=== PATIENT | female | born 1965 | race Caucasian/White ===

== ENCOUNTER 2016-11-27 14:58 | Emergency (ER) | payer OTHER ==
[~2016-11-27] VITALS: Ht 162.6 cm; Wt 89.7 kg
[2016-11-27 16:46] LABS: ADD MIUA? YES; BILIRUBIN NEGATIVE; BLOOD NEGATIVE; COLOR YELLOW ((YELLOW)); GLUCOSE (STRIP) NEGATIVE; KETONES NEGATIVE; LEUKOCYTES TRACE; NITRITE NEGATIVE; PROTEIN (STRIP) NEGATIVE; SPECIFIC GRAVITY 1.021 (1.000-1.030)
[2016-11-27 17:13] LABS: BACTERIA RARE /HPF; EPITHELIAL CELLS 3+ /HPF; MUCUS TRACE /LPF; RED BLOOD CELLS 0-5 /HPF (0-5); WHITE BLOOD CELLS 0-5 /HPF (0-5)
[2016-11-27] MEDS ORDERED: KEFLEX500 MG PO (17:32)
[2016-11-27] MEDS ORDERED: BACTRIM,SEPT1 TABLET PO (17:32)
[2016-11-27 18:15] VITALS: BP 183/100
== END 2016-11-27 18:15 | disposition home or self-care (01) ==
LOC: EME 14:58
PROVIDERS: Physician Assistant
DX: L02.416 Cutaneous abscess of left lower limb (principal); L98.9 Disorder of the skin and subcutaneous tissue, unspecified; D64.9 Anemia, unspecified; I10 Essential (primary) hypertension; Z87.440 Personal history of urinary (tract) infections
CPT/HCPCS: 81003; 99281; 99283

== ENCOUNTER 2017-02-26 17:31 | Emergency (ER) | payer OTHER ==
[~2017-02-26] VITALS: Ht 160 cm; Wt 90.9 kg
[~2017-02-26 17:31] MED LIST: BACTRIM,SEPT1 TABLET PO; KEFLEX500 MG PO
[2017-02-26 18:20] LABS: HEMATOCRIT 43.9 % (36.0-46.0); MCH 30.1 PG (29.0-34.0); MCHC 33.7 G/DL (30.0-36.0); MCV 89.4 FL (83-99); MEAN PLAT.VOLUME 10.6 uM^3 (9.5-12.4); PLATELET COUNT 281 K/uL (156-360); RBC DIS.WIDTH-CV 12.9 % (11.8-14.6); RBC DIS.WIDTH-SD 41.8 % (39-53); RED BLOOD COUNT 4.91 M/uL (3.80-5.20); WHITE BLOOD COUNT 11.6 K/uL (4.1-10.2)
[2017-02-26 18:26] LABS: CHLORIDE 105 mEq/L (99-109); SODIUM 136 mEq/L (136-147)
[2017-02-26 18:28] LABS: GLUCOSE 135 mg/dL (70-99)
[2017-02-26 18:29] LABS: ANION GAP 9 MEQ/L (2-14)
[2017-02-26 18:31] LABS: ALKALINE PHOSPHATASE 82 IU/L (3-129)
[2017-02-26 18:32] LABS: GFR ESTIMATE (CALCULATED) > 59 mL/min/
[2017-02-26 18:33] LABS: UREA NITROGEN (BUN) 14 mg/dL (9-23)
[2017-02-26 18:35] LABS: LIPASE 13 U/L (1.0-51.0)
[2017-02-26 18:40] LABS: QUANTITATIVE HCG < 4.0 MIU/ML
[2017-02-26 20:29] LABS: ADD MEDTOX COMMENT Y; ADD MIUA? NO; AMPHETAMINE NEGATIVE (500 ng/mL); BARBITURATES NEGATIVE (200 ng/mL); BENZODIAZEPINES PRESUMPTIVE POSITIVE (150 ng/mL); BILIRUBIN NEGATIVE; BLOOD NEGATIVE; COCAINE NEGATIVE (150 ng/mL); COLOR YELLOW ((YELLOW)); GLUCOSE (STRIP) NEGATIVE; INTERNAL CONTROLS VALID? YES; KETONES NEGATIVE; LEUKOCYTES NEGATIVE; METHADONE NEGATIVE (200 ng/mL); METHAMPHETAMINE NEGATIVE (500 ng/mL); NITRITE NEGATIVE; OPIATES (MORPHINE) NEGATIVE (100 ng/mL); OXYCODONE NEGATIVE (100 ng/mL); PHENCYCLIDINE NEGATIVE (25 ng/mL); PROPOXYPHENE NEGATIVE (300 ng/mL); PROTEIN (STRIP) 30; THC CANNABINOIDS NEGATIVE (50 ng/mL); TRICYCLIC ANTIDEPRESSANTS NEGATIVE (300 ng/mL); UCUL ADDED? NO; UROBILINOGEN 0.2 MG/DL (0.2-1.0)
[2017-02-26 20:58] LABS: BENZODIAZEPINES, URINE SCREEN POSITIVE (200 ng/mL)
[2017-02-26] MEDS ORDERED: ZOFRAN ODT4 MG PO (21:14)
[2017-02-26] MEDS ORDERED: REGLAN5 MG PO (22:02)
[2017-02-26] MEDS ORDERED: BENTYL20 MG PO (22:02)
[2017-02-26 22:34] VITALS: BP 137/84
== END 2017-02-26 22:36 | disposition home or self-care (01) ==
LOC: EME 17:31
PROVIDERS: Nurse Practitioner Family
DX: R10.13 Epigastric pain (principal); R11.2 Nausea with vomiting, unspecified; I10 Essential (primary) hypertension; F41.9 Anxiety disorder, unspecified
CPT/HCPCS: 74177; 80053; 81003; 83690; 84702; 84999; 85027; 99281; 99285; J1885; J2405; J7030

== ENCOUNTER → 2017-05-22 | Outpatient (CLI) | payer OTHER ==
[~2017-05-22] MED LIST changes: +BENTYL20 MG PO; +FEOSOL325 MG PO; +LOPRESSOR50 MG PO; +PRILOSEC OTC20 MG PO; +REGLAN5 MG PO; +ULTRAM50 MG PO; +XANAX0.5 MG PO; +ZOFRAN ODT4 MG PO
== END | disposition home or self-care (01) ==
LOC: CDC 10:49
DX: Z01.810 Encounter for preprocedural cardiovascular examination (principal); C44.799 Other specified malignant neoplasm of skin of left lower limb, including hip; R00.1 Bradycardia, unspecified; I51.7 Cardiomegaly; R94.31 Abnormal electrocardiogram [ECG] [EKG]
CPT/HCPCS: 93000

== ENCOUNTER 2017-05-28 10:15 | Day surgery (SDC) | payer OTHER ==
[~2017-05-28] VITALS: Ht 162.6 cm; Wt 81.8 kg
[2017-05-28 11:04] VITALS: BP 175/74
[2017-05-28] MEDS ORDERED: NORCO 5/3251 TABLET PO (13:01)
[2017-05-28 13:42] VITALS: BP 142/93
[2017-05-28 14:42] VITALS: BP 168/86
== END 2017-05-28 14:55 | disposition home or self-care (01) ==
LOC: SDC 10:15
PROC: 0JQL0ZZ Repair Right Upper Leg Subcutaneous Tissue and Fascia, Open Approach (ICD-10-PCS; principal; 2017-05-28)
PROC: 0JBM0ZZ Excision of Left Upper Leg Subcutaneous Tissue and Fascia, Open Approach (ICD-10-PCS; principal; 2017-05-28)
DX: C44.799 Other specified malignant neoplasm of skin of left lower limb, including hip (principal); I10 Essential (primary) hypertension; F41.1 Generalized anxiety disorder; E66.09 Other obesity due to excess calories; Z68.32 Body mass index [BMI] 32.0-32.9, adult; K21.9 Gastro-esophageal reflux disease without esophagitis; R00.1 Bradycardia, unspecified; Z87.891 Personal history of nicotine dependence; Z80.0 Family history of malignant neoplasm of digestive organs
CPT/HCPCS: 88305; J0131; J0690; J1100; J1885; J2250; J2405; J3010

== ENCOUNTER 2017-07-02 05:53 | Day surgery (SDC) | payer OTHER ==
[~2017-07-02] VITALS: Ht 162.6 cm; Wt 92.0 kg
[~2017-07-02 05:53] MED LIST changes: +NORCO 5/3251 TABLET PO
[2017-07-02 06:54] VITALS: BP 180/91
[2017-07-02] MEDS ORDERED: NORCO 5/3251 TABLET PO ×2 (06:54→08:16)
[2017-07-02 09:03] VITALS: BP 139/78
[2017-07-02 10:00] VITALS: BP 156/78
== END 2017-07-02 10:11 | disposition home or self-care (01) ==
LOC: SDC 05:53
DX: C44.799 Other specified malignant neoplasm of skin of left lower limb, including hip (principal); I10 Essential (primary) hypertension; K21.9 Gastro-esophageal reflux disease without esophagitis; F41.1 Generalized anxiety disorder; E66.09 Other obesity due to excess calories; Z68.34 Body mass index [BMI] 34.0-34.9, adult; D50.9 Iron deficiency anemia, unspecified; Z80.0 Family history of malignant neoplasm of digestive organs; Z82.49 Family history of ischemic heart disease and other diseases of the circulatory system; Z82.5 Family history of asthma and other chronic lower respiratory diseases; Z83.3 Family history of diabetes mellitus; Z87.891 Personal history of nicotine dependence
CPT/HCPCS: 88305; J0131; J0330; J0690; J1100; J1170; J1885; J2250; J2405; J2710; J2765; Q0175; S0020